=== PATIENT | female | born 1985 | race American Indian/Alaskan Native ===

== ENCOUNTER 2017-04-14 01:42 | Emergency (ER) | payer SELFPAY ==
[2017-04-14] MEDS ORDERED: MOTRIN PO ONE (05:37)
[2017-04-14] MEDS ORDERED: XYLOCAINE 2%/EPI 1:100,000 INFILTRATI ONE (05:37)
[2017-04-14] MEDS ORDERED: XYLOCAINE 2%/ EPI 1:200,000 INFILTRATI ONE ×2 (05:38→05:41)
--- NOTE | 2017-04-14 05:38 | Emergency Department Report ---
Abscess Boil HPI - HPI Chief Complaint: Skin/Abscess/Foreign Body Stated Complaint: BUMP UNDER R ARM PIT Time Seen by Provider: 04/14/17 05:20 Duration: 4 Days Location: Upper Extremity (right axilla) Severity: Mild History: Yes Pain, Yes Previous History, No Fever, No Purulent Drainage, No Numbness, No Foreign Body, No Insect Bite HPI: 31-year-old female with past medical history chronic lower back pain presents with complaint of 4 days of right armpit pain and swelling. Patient states she has noticed a boil in her right armpit region. Denies any purulent drainage. Denies any fever or chills. States that it is painful to move her right shoulder because of pain radiating from armpit Home Medications: Home Medications Medication Instructions Recorded Confirmed Last Taken Gabapentin [Neurontin] 300 mg PO Q8HR 06/04/15 06/04/15 06/03/15 Oxycodone HCl/Acetaminophen 06/04/15 06/04/15 06/01/15 [Percocet 10/325 mg] Previous Rx's Medication Instructions Recorded Last Taken Type HYDROcodone/APAP 5-325 [[place] 1 each PO Q4HR PRN #15 tablet 06/04/15 Unknown Rx 5/325] Ibuprofen [Motrin] 800 mg PO Q8HR PRN #30 tablet 06/04/15 Unknown Rx Mupirocin [Bactroban 2% CREAM] 1 applicatio TP TID #1 cream 06/04/15 Unknown Rx Cephalexin [Keflex] 500 mg PO Q12HR #28 cap 07/16/15 Unknown Rx Sulfamethoxazole/Trimethoprim 1 each PO BID #28 tablet 07/16/15 Unknown Rx [Bactrim DS TAB] Acetaminophen/Codeine [Tylenol 1 tab PO TID PRN #15 tab 07/02/16 Unknown Rx /Codeine # 3 tab] Sulfamethoxazole/Trimethoprim 1 each PO BID #20 tablet 07/02/16 Unknown Rx [Bactrim DS TAB] Ibuprofen [Motrin] 800 mg PO Q8HR PRN #25 tablet 04/14/17 Unknown Rx Sulfamethoxazole/Trimethoprim 1 each PO BID #14 tablet 04/14/17 Unknown Rx [Bactrim DS TAB] Allergies/Adverse Reactions: Allergies Allergy/AdvReac Type Severity Reaction Status Date / Time No Known Allergies Allergy Verified 07/16/15 03:46 ED Review of Systems ROS: Stated complaint: BUMP UNDER R ARM PIT Other details as noted in HPI Constitutional: denies: chills, fever Eyes: denies: eye pain, eye discharge, vision change ENT: denies: ear pain, throat pain Respiratory: denies: cough, shortness of breath, wheezing Cardiovascular: denies: chest pain, palpitations Endocrine: no symptoms reported Gastrointestinal: denies: abdominal pain, nausea, diarrhea Genitourinary: denies: urgency, dysuria, discharge Musculoskeletal: denies: back pain, joint swelling, arthralgia Skin: denies: rash, lesions Neurological: denies: headache, weakness, paresthesias Psychiatric: denies: anxiety, depression Hematological/Lymphatic: denies: easy bleeding, easy bruising ED Past Medical Hx - Past Medical History Previous Medical History?: No Additional medical history: Back injury - Surgical History Past Surgical History?: Yes Additional Surgical History: Back surgery x 2 - Social History Smoking Status: Current Every Day Smoker Substance Use Type: None - Medications Home Medications: Home Medications Medication Instructions Recorded Confirmed Last Taken Type Gabapentin [Neurontin] 300 mg PO Q8HR 06/04/15 06/04/15 06/03/15 History HYDROcodone/APAP 5-325 [[place] 1 each PO Q4HR PRN #15 tablet 06/04/15 Unknown Rx 5/325] Ibuprofen [Motrin] 800 mg PO Q8HR PRN #30 tablet 06/04/15 Unknown Rx Mupirocin [Bactroban 2% CREAM] 1 applicatio TP TID #1 cream 06/04/15 Unknown Rx Oxycodone HCl/Acetaminophen 06/04/15 06/04/15 06/01/15 History [Percocet 10/325 mg] Cephalexin [Keflex] 500 mg PO Q12HR #28 cap 07/16/15 Unknown Rx Sulfamethoxazole/Trimethoprim 1 each PO BID #28 tablet 07/16/15 Unknown Rx [Bactrim DS TAB] Acetaminophen/Codeine [Tylenol 1 tab PO TID PRN #15 tab 07/02/16 Unknown Rx /Codeine # 3 tab] Sulfamethoxazole/Trimethoprim 1 each PO BID #20 tablet 07/02/16 Unknown Rx [Bactrim DS TAB] Ibuprofen [Motrin] 800 mg PO Q8HR PRN #25 tablet 04/14/17 Unknown Rx Sulfamethoxazole/Trimethoprim 1 each PO BID #14 tablet 04/14/17 Unknown Rx [Bactrim DS TAB] ED Abscess Boil Physical Exam - Exam General: Vital signs noted. No distress. Alert and acting appropriately. Front/Back of Body, Lg (Color): 1 - 4-5 cm diameter abscess with fluctuance right axilla Size: 5 cm Exam: Yes Tenderness, Yes Fluctuance, Yes Surrounding Cellulites/Erythema, No Lymphangitis, No Crepitation, No Heart Murmur, No Normal Neurologic Exam, No Normal Circulation I & D Note - I & D Note I & D Note: Local anesthesia with lidocaine and epinephrine approximately 3-4 mL administered, good local anesthesia achieved. Abscess incised with single vertical 1-1/2 cm incision diagonal and right axilla. Approximately 8 mL of purulent drainage. Wound irrigated with saline 10 mL flush, patient felt significant relief after incision and drainage. 4 inches of half-inch iodoform gauze packed into the wound. Procedure tolerated well ED Course Vital Signs 04/14/17 01:54 Temperature 98.7 F Pulse Rate 83 Respiratory 18 Rate Blood Pressure 122/69 O2 Sat by Pulse 100 Oximetry Critical care attestation.: If time is entered above; I have spent that time in minutes in the direct care of this critically ill patient, excluding procedure time. ED Medical Decision Making - Medical Decision Making A/P: Right axillary abscess 1-successful incision and drainage, patient feels significant symptomatic relief 2-Motrin 800 when necessary 3-abscess packed with 4 inches of iodoform gauze. I advised patient to extract iodoform gauze within 12-16 hours at home and to not leave it in for more than 24 hours. I advised patient on local wound care 4-patient advised to return to the ED for reaccumulation of abscess, any fever or chills, significant pus or blood drainage from incision site ED Disposition Clinical Impression: Axillary abscess Disposition: TO HOME OR SELFCARE Is pt being admited?: No Does the pt Need Aspirin: No Condition: Stable Instructions: Abscess Incision and Drainage (ED), Abscess (ED), Acute Wound Care (ED) Additional Instructions: Patient advised to return to the ED if abscess re-accumulates or if she develops fever or chills, worsening cellulitis below right axilla. Patient advised to remove packing in 12-16 hours at home Prescriptions: Ibuprofen [Motrin] 800 mg PO Q8HR PRN #25 tablet PRN Reason: Pain Sulfamethoxazole/Trimethoprim [Bactrim DS TAB] 1 each PO BID #14 tablet Referrals: [facility] [Provider Group] - 3-5 Days Forms: Work/School Release Form(ED) Time of Disposition: 06:14
[2017-04-14 06:33] VITALS: BP 114/63
== END 2017-04-14 06:33 | disposition home or self-care (01) ==
LOC: ED 01:42
DX: L02.411 Cutaneous abscess of right axilla (principal); F17.210 Nicotine dependence, cigarettes, uncomplicated
CPT/HCPCS: 99282

== ENCOUNTER 2017-07-24 13:16 | Emergency (ER) | payer SELFPAY ==
[2017-07-24] MEDS ORDERED: PERCOCET 5/325 PO ONE (18:40)
[2017-07-24] MEDS ORDERED: XYLOCAINE 1% 20 mL INFILTRATI ONE (18:41)
[2017-07-24] MEDS ORDERED: TRIPLE ANTIBIOTIC TP ONE (20:01)
--- NOTE | 2017-07-24 20:07 | Emergency Department Report ---
Abscess Boil HPI - HPI Chief Complaint: Skin/Abscess/Foreign Body Stated Complaint: ABSCESS ON RIGHT ARM PIT Duration: 4 Days Location: Upper Extremity History: Yes Pain, Yes Purulent Drainage, Yes Previous History, No Fever, No Numbness, No Foreign Body, No Insect Bite HPI: 32 year old female presents to ED with right axillary abscess x4-5 days. patient has history of axillary abscess. patient denies being MRSA positive. patient denies being diabetic. patient is stable,neurologically intact and in no acute distress. Home Medications: Home Medications Medication Instructions Recorded Confirmed Last Taken Gabapentin [Neurontin] 300 mg PO Q8HR 06/04/15 06/04/15 06/03/15 Oxycodone HCl/Acetaminophen 06/04/15 06/04/15 06/01/15 [Percocet 10/325 mg] Previous Rx's Medication Instructions Recorded Last Taken Type HYDROcodone/APAP 5-325 [[place] 1 each PO Q4HR PRN #15 tablet 06/04/15 Unknown Rx 5/325] Ibuprofen [Motrin] 800 mg PO Q8HR PRN #30 tablet 06/04/15 Unknown Rx Mupirocin [Bactroban 2% CREAM] 1 applicatio TP TID #1 cream 06/04/15 Unknown Rx Cephalexin [Keflex] 500 mg PO Q12HR #28 cap 07/16/15 Unknown Rx Sulfamethoxazole/Trimethoprim 1 each PO BID #28 tablet 07/16/15 Unknown Rx [Bactrim DS TAB] Acetaminophen/Codeine [Tylenol 1 tab PO TID PRN #15 tab 07/02/16 Unknown Rx /Codeine # 3 tab] Sulfamethoxazole/Trimethoprim 1 each PO BID #20 tablet 07/02/16 Unknown Rx [Bactrim DS TAB] Ibuprofen [Motrin] 800 mg PO Q8HR PRN #25 tablet 04/14/17 Unknown Rx Sulfamethoxazole/Trimethoprim 1 each PO BID #14 tablet 04/14/17 Unknown Rx [Bactrim DS TAB] Cephalexin [Keflex] 500 mg PO Q12HR #14 cap 07/24/17 Unknown Rx Allergies/Adverse Reactions: Allergies Allergy/AdvReac Type Severity Reaction Status Date / Time No Known Allergies Allergy Verified 07/16/15 03:46 ED Review of Systems ROS: Stated complaint: ABSCESS ON RIGHT ARM PIT Other details as noted in HPI Constitutional: denies: chills, fever Eyes: denies: eye pain, eye discharge, vision change ENT: denies: ear pain, throat pain Respiratory: denies: cough, shortness of breath, wheezing Cardiovascular: denies: chest pain, palpitations Endocrine: no symptoms reported Gastrointestinal: denies: abdominal pain, nausea, diarrhea Genitourinary: denies: urgency, dysuria, discharge Musculoskeletal: denies: back pain, joint swelling, arthralgia Skin: denies: rash, lesions Neurological: denies: headache, weakness, paresthesias Psychiatric: denies: anxiety, depression Hematological/Lymphatic: denies: easy bleeding, easy bruising ED Past Medical Hx - Past Medical History Previous Medical History?: Yes Additional medical history: Back injury - Surgical History Past Surgical History?: Yes Additional Surgical History: Back surgery x 2 - Social History Smoking Status: Current Every Day Smoker Substance Use Type: None - Medications Home Medications: Home Medications Medication Instructions Recorded Confirmed Last Taken Type Gabapentin [Neurontin] 300 mg PO Q8HR 06/04/15 06/04/15 06/03/15 History HYDROcodone/APAP 5-325 [[place] 1 each PO Q4HR PRN #15 tablet 06/04/15 Unknown Rx 5/325] Ibuprofen [Motrin] 800 mg PO Q8HR PRN #30 tablet 06/04/15 Unknown Rx Mupirocin [Bactroban 2% CREAM] 1 applicatio TP TID #1 cream 06/04/15 Unknown Rx Oxycodone HCl/Acetaminophen 06/04/15 06/04/15 06/01/15 History [Percocet 10/325 mg] Cephalexin [Keflex] 500 mg PO Q12HR #28 cap 07/16/15 Unknown Rx Sulfamethoxazole/Trimethoprim 1 each PO BID #28 tablet 07/16/15 Unknown Rx [Bactrim DS TAB] Acetaminophen/Codeine [Tylenol 1 tab PO TID PRN #15 tab 07/02/16 Unknown Rx /Codeine # 3 tab] Sulfamethoxazole/Trimethoprim 1 each PO BID #20 tablet 07/02/16 Unknown Rx [Bactrim DS TAB] Ibuprofen [Motrin] 800 mg PO Q8HR PRN #25 tablet 04/14/17 Unknown Rx Sulfamethoxazole/Trimethoprim 1 each PO BID #14 tablet 04/14/17 Unknown Rx [Bactrim DS TAB] Cephalexin [Keflex] 500 mg PO Q12HR #14 cap 07/24/17 Unknown Rx ED Abscess Boil Physical Exam - Exam General: Vital signs noted. No distress. Alert and acting appropriately. Size: 4 cm Exam: Yes Tenderness, Yes Fluctuance, Yes Normal Neurologic Exam, Yes Normal Circulation, No Surrounding Cellulites/Erythema, No Lymphangitis, No Crepitation , No Heart Murmur I & D Note - I & D Note I & D Note: area prepped with betadine. 5cc's 1% lidocaine applied to area for numbing. moderate amount of purulent drainage obtained. patient tolerated procedure well. bleeding well controlled. ED Course Vital Signs 07/24/17 07/24/17 13:58 19:24 Temperature 99 F Pulse Rate 85 Respiratory 18 18 Rate Blood Pressure 121/75 O2 Sat by Pulse 100 Oximetry Critical care attestation.: If time is entered above; I have spent that time in minutes in the direct care of this critically ill patient, excluding procedure time. ED Medical Decision Making - Medical Decision Making 32 year old female presents to ED with right axillary abscess x4-5 days. patient tolerated I&D procedure well. patient is stable, neurologically intact and in no acute distress. ED Disposition Clinical Impression: Abscess of axilla, right Disposition: DC-01 TO HOME OR SELFCARE Is pt being admited?: No Does the pt Need Aspirin: No Condition: Stable Instructions: Abscess (ED) Additional Instructions: Please return to ED within 2-3 days for recheck. Prescriptions: Cephalexin [Keflex] 500 mg PO Q12HR #14 cap Referrals: PRIMARY CARE, [Primary Care Provider] - 3-5 Days Forms: Work/School Release Form(ED)
[2017-07-25 05:08] VITALS: BP 113/69
== END 2017-07-24 20:13 | disposition home or self-care (01) ==
LOC: ED 13:16
DX: L02.411 Cutaneous abscess of right axilla (principal); F17.210 Nicotine dependence, cigarettes, uncomplicated
CPT/HCPCS: 99282; A6250

== ENCOUNTER 2022-05-26 10:40 | Outpatient (CLI) | payer OTHER ==
--- NOTE | 2022-05-28 08:27 | Mammography Report ---
DIGITAL SCREENING MAMMOGRAM WITH CAD, 05/26/2022 CLINICAL INFORMATION / INDICATION: Routine screening mammography TECHNIQUE: Digital 2D mammography was obtained in the craniocaudal and mediolateral oblique projectio ns. This examination was interpreted with the benefit of Computer-Aided Detection analysis. COMPARISON: None, baseline FINDINGS: Breast Density: There are scattered areas of fibroglandular density. No dominant mass, suspicious calcifications, or architectural distortion in the left breast. A 9 mm focal asymmetric density is seen in the anterior depth of the right lateral breast at approxim ately 9:00, 4 cm nipple. IMPRESSION: Focal asymmetric density on the right Follow up recommendation: Right breast ultrasound and additional mammographic views if needed BI-RADS Category 0: INCOMPLETE. Needs additional imaging evaluation and/or prior mammograms for stephanie price. A "normal" or negative report should not discourage follow up or biopsy of a clinically significant f inding. A written summary of these findings will be mailed to the patient. The patient will be entered into a mammography reporting system which will generate a reminder letter for the patient's next appointmen t at the appropriate interval. The [employer] recommends yearly mammograms starting at age 40 and continuing as l kyaw as a woman is in good health. Breast MRI is recommended for women with an approximate 20-25% or greater lifetime risk of breast cancer, including women with a strong family history of breast or ova agapito cancer or who have been treated for Hodgkin's disease. Signer Name: Teddy Zimmer MD Signed: 05/28/2022 8:22 AM Workstation Name: [employer]
== END 2022-05-26 10:41 | disposition home or self-care (01) ==
LOC: MAMMO 10:40
PROVIDERS: ATTEND Internal Medicine
DX: Z12.31 Encounter for screening mammogram for malignant neoplasm of breast (principal)
CPT/HCPCS: 77067

== ENCOUNTER 2022-06-13 12:43 | Outpatient (CLI) | payer OTHER ==
--- NOTE | 2022-06-13 16:28 | Ultrasound Report ---
ULTRASOUND PELVIS INDICATION / CLINICAL INFORMATION: R10.2, N93.9 PELVIC PAIN, ABNORMAL UTERINE BLEEDING. TECHNIQUE: Transabdominal and Transvaginal. Duplex Color Doppler used: Yes. COMPARISON: None available FINDINGS: UTERUS: - Appearance: No significant abnormality. - Size (cm): 6.0 x 5.0 x 4.7 cm. - Endometrial Complex (if present): Mild endometrial thickening. Thickness in cm (if measured) = 1.2 cm. - Mass or cyst: Anterior subserosal uterine fibroid measuring 1.6 cm. - Additional findings: None. RIGHT ADNEXA: The right ovary measures 4.3 x 3.9 x 4.4 cm. Complex cystic ovarian mass with internal debris and possible solid component measuring 4.6 cm in maximal dimension. Normal color Doppler bloo d flow. LEFT ADNEXA: The left ovary measures 4.4 x 3.3 x 4.5 cm. No significant ovarian cyst or mass. Normal color Doppler blood flow. URINARY BLADDER: No significant abnormality. FREE FLUID: None. ADDITIONAL FINDINGS: None. IMPRESSION: 1. Complex cystic right ovarian mass measuring 4.6 cm. 2. Mild endometrial thickening may be related to stage of patient's menstrual cycle. Correlate clinic ally. 3. Uterine fibroid measuring 1.6 cm. Scribed by: Ashley Mcmanus RDMS, ETHAN, JOHANNA Scribed: 06/13/2022 3:02 PM I have reviewed the images, agree with this report, and edited this report as needed. Signer Name: Phil Kruger MD Signed: 06/13/2022 4:24 PM Workstation Name: [employer]
== END 2022-06-13 12:44 | disposition home or self-care (01) ==
LOC: US 12:43
PROVIDERS: ATTEND Obstetrics & Gynecology
DX: D25.9 Leiomyoma of uterus, unspecified (principal); N83.201 Unspecified ovarian cyst, right side; N93.9 Abnormal uterine and vaginal bleeding, unspecified
CPT/HCPCS: 76830; 76856